=== PATIENT | male | born 1995 | race Caucasian/White ===

== ENCOUNTER 2021-09-19 17:14 | Emergency (ER) | payer OTHER ==
[2021-09-19 17:22] VITALS: BP 135/74; PULSE 63; TEMP 97.9; BMI 23.0
[2021-09-19] MEDS ORDERED: FLUORESCEIN NA 1 EA STRIP ONE (17:43)
== END 2021-09-19 18:47 | disposition home or self-care (01) ==
LOC: JERFT 17:14 → JER 17:14 → JERFT 18:47
DX: S05.92XA Unspecified injury of left eye and orbit, initial encounter (principal); W45.8XXA Other foreign body or object entering through skin, initial encounter; Y93.89 Activity, other specified
CPT/HCPCS: 99283-25